=== PATIENT | female | born 1965 | race African-American/Black ===

== ENCOUNTER 2024-02-05 08:33 | Emergency (ER) | payer OTHER ==
[~2024-02-05] VITALS: Ht 149.9 cm; Wt 63.5 kg
[~2024-02-05 08:33] MED LIST: HTN
[2024-02-05 08:39] VITALS: BP 175/103
[2024-02-05 08:41] VITALS: BP 171/92
[2024-02-05] MEDS ORDERED: KETOROLAC TROMETHAMINE 30 MG/ML SDV IV ONE (08:50)
[2024-02-05] MEDS ORDERED: KETOROLAC TROMETHAMINE 30 MG/ML SDV IM ONE (08:50)
[2024-02-05 08:56] LABS: BASO% 0.5 % (0-3); EOS% 1.5 % (0-8); HEMATOCRIT 39.5 % (37.0-47.0); HEMOGLOBIN 12.5 g/dl (12.0-16.0); IMMATURE GRANULOCYTES 0.1 % (0.0-5.0); LYMPH% 38.6 % (15-41); MEAN CELL VOLUME 93.4 fL CALC (80.0-100.0); MEAN CORPUSCULAR HGB 29.6 pG CALC (26.0-32.0); MEAN CORPUSCULAR HGB CONC 31.6 g/dL CAL (32.0-36.0); MONO% 7.3 % (2-13); NEUT# 4.03 thou/uL (2.00-7.15); RED BLOOD COUNT 4.23 mill/uL (4.20-5.60); RED CELL DISTRI WIDTH 13.4 % (11.5-15.5)
[2024-02-05 09:13] LABS: ALBUMIN 4.4 g/dL (3.2-5.0); BILIRUBIN, TOTAL 1.1 mg/dL (0.02-1.3); CREATININE 0.8 mg/dL (0.5-1.0); TOTAL PROTEIN 8.1 g/dL (6.3-8.2)
[2024-02-05 10:03] LABS: URINE BILIRUBIN - DIPSTICK Negative (NEGATIVE); URINE BLOOD DIPSTICK Negative (NEGATIVE); URINE GLUCOSE - DIPSTICK Negative (NEGATIVE); URINE KETONE Negative (NEGATIVE); URINE LEUK ESTERASE Negative (NEGATIVE); URINE NITRITE - DIPSTICK Negative (Negative); URINE PH 6.5 (4.5-8.0); URINE PROTEIN - DIPSTICK Negative (NEG-TRACE); URINE UROBILINOGEN - DIPSTICK 0.2 E.U./dL (0.2)
[2024-02-05 10:10] LABS: URINE COLOR Yellow
[2024-02-05] MEDS ORDERED: OSCIMIN0.125 MG PO (13:04)
[2024-02-05 13:19] VITALS: BP 186/118
[2024-02-05 13:23] VITALS: BP 170/101
== END 2024-02-05 13:30 | disposition home or self-care (01) ==
LOC: ED 08:33
PROVIDERS: Family Medicine
DX: R10.12 Left upper quadrant pain (principal); R10.32 Left lower quadrant pain; I10 Essential (primary) hypertension; E66.01 Morbid (severe) obesity due to excess calories
CPT/HCPCS: Q9967

== ENCOUNTER 2024-06-24 06:59 | Day surgery (SDC) | payer OTHER ==
[~2024-06-24] VITALS: Ht 149.9 cm; Wt 93.9 kg
[~2024-06-24 06:59] MED LIST changes: +AMLODIPINE BESYL5 MG PO; +HYZAAR1 TAB PO; +JARDIANCE10 MG PO; +METFORMIN500 M2 PO; +OSCIMIN0.125 MG PO; +OZEMPIC2 MG SC; +ROSUVASTATIN CAL5 MG PO; +TOPROL XL25 M1 PO
[2024-06-24] MEDS ORDERED: LACTATED RINGER'S 1,000 ML IV ONE (07:02)
[2024-06-24] MEDS ORDERED: FAMOTIDINE 10MG/ML 2ML SDV IV ONE (07:02)
[2024-06-24 10:06] VITALS: BP 144/96
[2024-06-24] MEDS ORDERED: PROPOFOL 200 MG/20 ML VIAL IV ONE (11:29)
[2024-06-24] MEDS ORDERED: LIDOCAINE HCL 2% 2ML SDV IV ONE (11:29)
== END 2024-06-24 10:25 | disposition home or self-care (01) ==
LOC: ORM 06:59
PROVIDERS: ATTEND Surgery
DX: R10.32 Left lower quadrant pain (principal); K64.8 Other hemorrhoids; I10 Essential (primary) hypertension